=== PATIENT | male | born 1980 | race Two or more races ===

== ENCOUNTER 2017-06-24 09:05 | Emergency (ER) | payer OTHER ==
[2016-09-08 15:25] VITALS: BP 152/88
[~2017-06-24] VITALS: Ht 170.2 cm; Wt 108.9 kg
[~2017-06-24 09:05] MED LIST: ACET-704 PO; AMOX1TAB61 PO; CYCL-331 PO
--- NOTE | 2017-06-24 09:27 | PHYS DOC ---
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 Patient states he smashed his thumb with the metal door and rated his pain 6/10. Patient denies other injuries and focal neurodeficit. Patient is not sure about his last tetanus shot. Review of Systems Review of Systems Constitutional: Denies fever or chills [] Eyes: Denies change in visual acuity, redness, or eye pain [] HENT: Denies nasal congestion or sore throat [] Respiratory: Denies cough or shortness of breath [] Cardiovascular: No additional information not addressed in HPI [] GI: Denies abdominal pain, nausea, vomiting, bloody stools or diarrhea [] : Denies dysuria or hematuria [] Musculoskeletal: Denies back pain , reports joint pain [] Integument: Denies rash or skin lesions [] Neurologic: Denies headache, focal weakness or sensory changes [] Endocrine: Denies polyuria or polydipsia [] All other systems were reviewed and found to be within normal limits, except as documented in this note. Allergies Allergies Allergies Coded Allergies Type Severity Reaction Last Updated Verified No Known Drug Allergies 06/24/17 No Physical Exam Physical Exam Constitutional: Well developed, well nourished, no acute distress, non-toxic appearance. [] HENT: Normocephalic, atraumatic, bilateral external ears normal, oropharynx moist, no oral exudates, nose normal. [] Eyes: PERRLA, EOMI, conjunctiva normal, no discharge. [] Neck: Normal range of motion, no tenderness, supple, no stridor. [] Cardiovascular:Heart rate regular rhythm, no murmur [] Lungs & Thorax: Bilateral breath sounds clear to auscultation [] Extremities: Right thumb with mild abrasion and contusion in the dorsal side of distal phalanx without deformity, mild tenderness with normal range of motion Neurologic: Alert and oriented X 3, normal motor function, normal sensory function, no focal deficits noted. [] Psychologic: Affect normal, judgement normal, mood normal. [] Current Patient Data Vital Signs Vital Signs Date Time Temp Pulse Resp B/P (MAP) Pulse Ox O2 Delivery O2 Flow Rate FiO2 06/24/17 09:14 98.1 84 16 95 Room Air EKG EKG [] Radiology/Procedures Radiology/Procedures X-ray of right thumb did not show fracture[] Course & Med Decision Making Course & Med Decision Making Pertinent Imaging studies reviewed. (See chart for details) [Evaluation of patient in ER showed male patient with injury to right thumb. Patient had mild contusion of time thumb without fracture. Patient treated with ibuprofen in ER and Coban was applied by ER nurse and patient instructed to follow-up with a primary care physician. Prescription for ibuprofen was given. Dragon Disclaimer Dragon Disclaimer This electronic medical record was generated, in whole or in part, using a voice recognition dictation system. Departure Departure: Impression: Primary Impression: Contusion of thumb, right Disposition: 01 HOME, SELF-CARE (At 0947) Condition: STABLE Referrals: [facility] (PCP) Patient Instructions: Contusion Additional Instructions: Apply ice on your finger Follow-up with [facility] as needed Scripts Ibuprofen (IBUPROFEN) 800 Mg Tablet 1 TAB PO TID, #30 TAB Prov: JOSE SUAREZ MD 06/24/17 JOSE SUAREZ MD Jun 24, 2017 09:27
[2017-06-24] MEDS ORDERED: IBUPROFEN 600 MG TABLET. PO ONE (09:30)
[2017-06-24] MEDS ORDERED: TETANUS AND DIPHTHERIA TOX/PF 0.5 ML VIAL. VAX IM ONE (09:30)
[2017-06-24] MEDS ORDERED: IBUP800T19 PO (09:50)
--- NOTE | 2017-06-24 09:52 | RAD ---
Indication: Bruising and swelling over third and fourth digits. Pain with manipulation of fingers. Technique: 3 views of the right hand are submitted for review. No comparison is available. Findings: There is no fracture or dislocation. There is no osseous lesion. Impression: Negative for fracture.
== END 2017-06-24 09:56 | disposition home or self-care (01) ==
LOC: ER 09:05
DX: S60.011A Contusion of right thumb without damage to nail, initial encounter (principal); W23.0XXA Caught, crushed, jammed, or pinched between moving objects, initial encounter; Y93.89 Activity, other specified; Y99.8 Other external cause status; Y92.89 Other specified places as the place of occurrence of the external cause
CPT/HCPCS: 73130; 90471; 90714; 99284-25

== ENCOUNTER 2017-06-29 20:09 | Emergency (ER) | payer OTHER ==
[~2017-06-29] VITALS: Ht 170.2 cm; Wt 108.9 kg
[~2017-06-29 20:09] MED LIST changes: +IBUP800T19 PO
--- NOTE | 2017-06-29 21:29 | ED.ADGEN ---
Past History Past Medical History: No Pertinent History Past Surgical History: Other Smoking: Non-smoker Alcohol Use: None Drug Use: None Adult General Chief Complaint Chief Complaint " My thumb is still stiff after getting it slammed in a door...Saturday at [facility] HPI Patient is a 37 year old male who presents with Rt. thumb pain from injury on Saturday. Pt. compliant s of pain still with movement and loading of thumb. Distal capillary refill less two seconds. This is still abrasions to thumb. Pt. is right-hand dominant. Reviewed x-ray findings from Saturday. No obvious displaced fracture. Review of Systems Review of Systems Constitutional: Denies fever or chills [] Eyes: Denies change in visual acuity, redness, or eye pain [] HENT: Denies nasal congestion or sore throat [] Respiratory: Denies cough or shortness of breath [] Cardiovascular: No additional information not addressed in [facility] [] GI: Denies abdominal pain, nausea, vomiting, bloody stools or diarrhea [] : Denies dysuria or hematuria [] Musculoskeletal: Denies back pain or joint pain []complaints of right thumb pain Integument: Denies rash or skin lesions [] Neurologic: Denies headache, focal weakness or sensory changes [] Endocrine: Denies polyuria or polydipsia [] All other systems were reviewed and found to be within normal limits, except as documented in this note. Family History Family History Noncontributory Current Medications Current Medications See nursing for home meds Allergies Allergies Allergies Coded Allergies Type Severity Reaction Last Updated Verified No Known Drug Allergies 06/24/17 No Physical Exam Physical Exam Constitutional: Well developed, well nourished, [id number] distress, non- toxic appearance. [] HENT: Normocephalic, atraumatic, bilateral external ears normal, oropharynx moist, no oral exudates, nose normal. [] Eyes: PERRLA, EOMI, conjunctiva normal, no discharge. [] Neck: Normal range of motion, no tenderness, supple, no stridor. [] Cardiovascular:Heart rate regular rhythm, no murmur [] Lungs & Thorax: Bilateral breath sounds clear to auscultation [] Abdomen: Bowel sounds normal, soft, no tenderness, no masses, no pulsatile masses. [] Skin: Warm, dry, no erythema, no rash. [] Back: No tenderness, no CVA tenderness. [] Extremities: No tenderness, no cyanosis, no clubbing, ROM intact, no edema. [] Except findings in right thumb. Neurologic: Alert and oriented X 3, normal motor function, normal sensory function, no focal deficits noted. [] Psychologic: Affect normal, judgement normal, mood normal. [] EKG EKG [] Radiology/Procedures Radiology/Procedures [] Course & Med Decision Making Course & Med Decision Making Pertinent Labs and Imaging studies reviewed. (See chart for details). Distal neurovascular intact after application of thumb spica. Ice, elevation, rest, Tylenol and ibuprofen for pain. Follow-up workmen comp. Consider repeat x-ray in 2 weeks. To evaluate missed fx. Final Impression Final Impression 1. Crush injury[] Problems: Dragon Disclaimer Dragon Disclaimer This electronic medical record was generated, in whole or in part, using a voice recognition dictation system. TREMAYNE LAM MD Jun 29, 2017 21:29
[2017-06-29 21:43] VITALS: BP 150/100
== END 2017-06-29 22:47 | disposition home or self-care (01) ==
LOC: ER 20:09
DX: S67.01XA Crushing injury of right thumb, initial encounter (principal); W23.0XXA Caught, crushed, jammed, or pinched between moving objects, initial encounter; Y93.89 Activity, other specified; Y99.8 Other external cause status; Y92.89 Other specified places as the place of occurrence of the external cause
CPT/HCPCS: 29125; 99283-25